=== PATIENT | male | born 1955 | race Caucasian/White ===

== ENCOUNTER → 2017-04-10 | Outpatient (CLI) | payer OTHER ==
[2014-04-04 19:36] VITALS: BP 144/82
[~2017-04-10] MED LIST: SULF1TAB24 PO
--- NOTE | 2017-04-10 13:08 | RAD ---
Clinical Indication: Left lower extremity pain Technique: Study is dated April 10, 2017. Grayscale, color flow and spectral waveform analysis was performed of the left lower extremity with and without compression. Findings: There is normal compressibility of all visualized vein segments. No evidence of DVT is present on grayscale or color images. There is normal phasicity of waveform. There is normal augmentation. Impression: No evidence of deep vein thrombosis.
--- NOTE | 2017-04-10 13:09 | RAD ---
Indication: Painful lump lateral thigh Technique: Targeted ultrasound of the area of concern was performed. Findings: Elongated oval-shaped lesion with similar echotexture to adjacent fat measures 2.1 x 3.3 x 0.3 cm in size, imaging characteristics most suggestive of a small lipoma. No worrisome mass or adenopathy is apparent and there is no fluid collection. Impression: Suspected lipoma at the area of palpable concern.
== END | disposition home or self-care (01) ==
LOC: US 12:06
PROVIDERS: ATTEND Family Medicine
DX: M79.605 Pain in left leg (principal)
CPT/HCPCS: 76882; 93971

== ENCOUNTER → 2017-06-17 | Outpatient (CLI) | payer OTHER ==
[2014-04-04 19:36] VITALS: BP 144/82
[~2017-06-17] MED LIST changes: +BUPIVACAINE MPF 0.25% 10 ML VIAL. ONE; +LIDOCAINE 1% PF 30 ML VIAL. ONE
== END ==
LOC: SURG 10:17
PROVIDERS: ATTEND Anesthesiology Pain Medicine
DX: M79.1 Myalgia (principal); J45.909 Unspecified asthma, uncomplicated; F17.210 Nicotine dependence, cigarettes, uncomplicated; I25.10 Atherosclerotic heart disease of native coronary artery without angina pectoris; M19.90 Unspecified osteoarthritis, unspecified site; K21.9 Gastro-esophageal reflux disease without esophagitis
CPT/HCPCS: 20552; 99213; J2001; J3490

== ENCOUNTER → 2017-07-02 | Outpatient (CLI) | payer OTHER ==
[2014-04-04 19:36] VITALS: BP 144/82
== END | disposition home or self-care (01) ==
LOC: SURG 09:31
PROVIDERS: ATTEND Anesthesiology Pain Medicine
DX: M47.812 Spondylosis without myelopathy or radiculopathy, cervical region (principal); J45.909 Unspecified asthma, uncomplicated; F17.210 Nicotine dependence, cigarettes, uncomplicated; I25.10 Atherosclerotic heart disease of native coronary artery without angina pectoris; M19.90 Unspecified osteoarthritis, unspecified site; Z79.899 Other long term (current) drug therapy
CPT/HCPCS: 64490; 64491; 64492; J2001; J3490

== ENCOUNTER → 2017-07-22 | Outpatient (CLI) | payer OTHER ==
[2014-04-04 19:36] VITALS: BP 144/82
[~2017-07-22] MED LIST changes: -BUPIVACAINE MPF 0.25% 10 ML VIAL. ONE; -LIDOCAINE 1% PF 30 ML VIAL. ONE
== END | disposition home or self-care (01) ==
LOC: SURG 09:08
PROVIDERS: ATTEND Anesthesiology Pain Medicine
DX: M47.812 Spondylosis without myelopathy or radiculopathy, cervical region (principal); M47.892 Other spondylosis, cervical region
CPT/HCPCS: 99213

== ENCOUNTER → 2018-01-11 | Outpatient (CLI) | payer OTHER ==
[2014-04-04 19:36] VITALS: BP 144/82
--- NOTE | 2018-01-11 15:54 | RAD ---
EXAM: Chest, 2 views. HISTORY: Chest pain. COMPARISON: None. FINDINGS: 2 views of the chest are obtained. There is no infiltrate, pleural effusion or pneumothorax. The heart is normal in size. IMPRESSION: No acute pulmonary finding. Electronically signed by: Virgie Abernathy MD (01/11/2018 3:51 PM) [place] [id number]
--- NOTE | 2018-01-11 15:54 | RAD ---
CT HEAD WO CONTRAST History: Headache, numbness in the right side of the face Comparison: None. Technique: Noncontrast CT imaging was performed of the head. Exposure: One or more of the following individualized dose reduction techniques were utilized for this examination: 1. Automated exposure control 2. Adjustment of the mA and/or kV according to patient size 3. Use of iterative reconstruction technique. Findings: No acute extra-axial or parenchymal hemorrhage is identified. There is no significant intra-axial mass effect, midline shift, or extra-axial fluid collection. The patel-white differentiation of the major vascular territories is preserved. The ventricles, sulci, and cisterns are within normal limits in size and configuration. The mastoid air cells and the visualized paranasal sinuses are aerated. No acute calvarial abnormality is identified. There is atherosclerotic calcification of the carotid siphons bilaterally and also left intradural vertebral artery. Impression: 1. No acute intracranial abnormality is identified. If there is concern for evolving or acute ischemia, followup CT or MRI could be beneficial. Electronically signed by: Ramon Edgar MD (01/11/2018 3:51 PM) [id number]
== END | disposition home or self-care (01) ==
LOC: CT 15:28
PROVIDERS: ATTEND Family Medicine
DX: I65.23 Occlusion and stenosis of bilateral carotid arteries (principal); R07.2 Precordial pain; E78.00 Pure hypercholesterolemia, unspecified; I25.10 Atherosclerotic heart disease of native coronary artery without angina pectoris; F17.210 Nicotine dependence, cigarettes, uncomplicated; M19.90 Unspecified osteoarthritis, unspecified site; K21.9 Gastro-esophageal reflux disease without esophagitis; Z88.0 Allergy status to penicillin
CPT/HCPCS: 70450; 71046

== ENCOUNTER 2018-12-05 11:37 | Emergency (ER) | payer OTHER ==
[~2018-12-05] VITALS: Ht 185.4 cm; Wt 103.0 kg
[2018-12-05 11:47] VITALS: BP 168/120
[2018-12-05] MEDS ORDERED: DOXY100C2 PO (12:15)
[2018-12-05] MEDS ORDERED: METH4TAB2 PO (12:15)
--- NOTE | 2018-12-05 12:15 | PHYS DOC ---
Past History Past Medical History: High Cholesterol, Prostatitis Past Surgical History: No Surgical History Alcohol Use: Occasionally Drug Use: None Adult General Chief Complaint Chief Complaint: SKIN PROBLEM HPI HPI Patient is a 63-year-old male who presents with complaint of pain, swelling and redness to his left lower leg after doing some yard work outside yesterday. Patient indicates that he felt like something had bitten his leg and he swept off with his other foot and didn't pay any further attention to it and later when he looked at his leg he noted some swelling and redness. He indicates that this morning swelling and redness had significantly increased. He does indicate that it is painful to bear weight on the ankle now. He denies having had any injury to the ankle. He denies fever, chest pain or shortness of breath.[] Review of Systems Review of Systems Constitutional: Denies fever or chills [] Respiratory: Denies cough or shortness of breath [] Cardiovascular: No additional information not addressed in HPI [] Musculoskeletal: Positive left lower leg and ankle pain [] Integument: Positive redness and swelling to left lower leg [] Current Medications Current Medications Current Medications Medications (Trade) Dose Ordered Sig/Kristen Start Time Stop Time Status Last Admin Dose Admin Methylprednisolone Sodium Succinate (SOLU-Medrol 125MG VIAL) 125 mg 1X ONCE 12/05/18 12:30 12/05/18 12:31 Allergies Allergies Allergies Coded Allergies Type Severity Reaction Last Updated Verified Penicillins Allergy Intermediate Itching 04/04/14 Yes bee venom (honey bee) Allergy Intermediate Itching 04/04/14 Yes Physical Exam Physical Exam Constitutional: Well developed, well nourished, no acute distress, non-toxic appearance. [] Cardiovascular:Heart rate regular rhythm, no murmur [] Lungs & Thorax: Bilateral breath sounds clear to auscultation [] Skin: Redness, inflammation and tenderness is noted to the left lower leg and around ankle. [] Extremities: No cyanosis, no clubbing, ROM intact. [] Current Patient Data Vital Signs Vital Signs Date Time Temp Pulse Resp B/P (MAP) Pulse Ox O2 Delivery O2 Flow Rate FiO2 12/05/18 11:47 97.8 80 18 95 Room Air EKG EKG [] Radiology/Procedures Radiology/Procedures [] Course & Med Decision Making Course & Med Decision Making Pertinent Labs and Imaging studies reviewed. (See chart for details) [] Dragon Disclaimer Dragon Disclaimer This electronic medical record was generated, in whole or in part, using a voice recognition dictation system. Departure Departure: Impression: Primary Impression: Allergic reaction to insect bite Disposition: 01 HOME, SELF-CARE Condition: STABLE Referrals: JOSE RAMIRES MD (PCP) Patient Instructions: Insect Bite Scripts Doxycycline Hyclate (DOXYCYCLINE HYCLATE) 100 Mg Capsule 1 CAP PO BID for infection, #20 CAP Prov: RAHAT CH Jr. DO 12/05/18 Methylprednisolone (MEDROL) 4 Mg Tab.ds.pk 1 PKG PO UD for inflammation, #1 PKG Prov: RAHAT CH Jr. DO 12/05/18 RAHAT CH Jr. DO Dec 05, 2018 12:15
[2018-12-05] MEDS ORDERED: methylPREDNISolone SOD SUCC PF 125 MG/2 ML VIAL. IM ONE (12:30)
== END 2018-12-05 12:27 | disposition home or self-care (01) ==
LOC: ER 11:37
DX: T63.481A Toxic effect of venom of other arthropod, accidental (unintentional), initial encounter (principal); M79.662 Pain in left lower leg; M25.572 Pain in left ankle and joints of left foot; R22.42 Localized swelling, mass and lump, left lower limb; E78.00 Pure hypercholesterolemia, unspecified; Z88.0 Allergy status to penicillin; Z91.030 Bee allergy status; Y92.89 Other specified places as the place of occurrence of the external cause
CPT/HCPCS: 96372; 99283; J2930